=== PATIENT | female | born 2000 | race Caucasian/White ===

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

== ENCOUNTER 2022-08-17 06:14 | Emergency (ER) | payer OTHER, SELFPAY ==
--- NOTE | ~2022-08-17 | CT_ITS ---
EXAMINATION: CT lumbar spine wo con DATE: 08/17/2022 07:34 INDICATION: Low back pain. Left leg pain and weakness. TECHNIQUE: Computed tomography (CT) of the lumbar spine was performed without intravenous contrast. A utomated exposure control and iterative reconstruction technique were employed. The dose-length produ ct was 1191.88 mGy-cm. COMPARISON: CT chest, abdomen and pelvis dated 04/07/2022 FINDINGS: Alignment is normal. Partially sacralized L5 segment with 4 more cephalad nonrib-bearing lumbar segme nts L1-L4. Vertebral body heights are normal. No fracture. Chronic Schmorl's nodes along the superior endplate of T12 and at the posterior superior endplate of L5. Multilevel mild bilateral lumbar facet osteoarthritis. Mild disc height loss at L4-L5. Disc is minimally bulging at L3-L4. Chronic L4 centr al disc protrusion results in mild central canal and bilateral neural foraminal stenosis. And which n arrows the lateral recesses, left greater than right. No other central canal or neural foraminal sten osis. Paravertebral soft tissues are unremarkable. IMPRESSION: 1. Mild lower lumbar spondylosis without significant change since 04/01/2018. Reviewed, dictated and finalized at location A.
[2022-08-17 06:18] VITALS: BP 126/66; PULSE 68; RESP 16; TEMP 36.6; O2SAT 100
--- NOTE | 2022-08-17 06:53 | ED.LOWEXIN ---
HPI - Extremity Injury (Lower) General Chief Complaint: Extremity Injury, Lower <Patty Loya MD - Last Filed: 08/22/22 13:54> Stated Complaint: Right leg numbess after readjustment <Patty Loya MD - Last Filed: 08/22/22 13:54> Time Seen by Provider: 08/17/22 06:34 <Patty Loya MD - Last Filed: 08/22/22 13:54> History of Present Illness HPI Narrative: Patient is a 22-year-old female presenting with lower back pain. Patient states that she has been having lower back pain so she saw a chiropractor yesterday morning. She states that he adjusted her lumbar spine. She states that soon after, she developed shooting pain down her left leg as well as numbness and tingling. Patient states that she feels like her left leg slightly weaker than normal. States that she has been having difficulty walking due to the pain. She denies saddle anesthesia or bladder or bowel incontinence. Patient states that she has not urinated since yesterday afternoon. She denies neck or upper back pain. Denies chest or abdominal pain. No nausea or vomiting. <Patty Loya MD - Last Filed: 08/22/22 13:54> Related Data Allergies/Adverse Reactions: Allergies Allergy/AdvReac Type Severity Reaction Status Date / Time amoxicillin Allergy Unknown Hives Verified 08/17/22 06:24 <Patty Loya MD - Last Filed: 08/22/22 13:54> Review of Systems Review of Systems: All systems reviewed & are unremarkable except as noted in HPI and below <Patty Loya MD - Last Filed: 08/22/22 13:54> [facility] Past Medical History Medical History: Medical History (Updated 08/18/22 @ 00:00 by Betty Fragoso) Amenorrhea Anxiety with depression <Patty Loya MD - Last Filed: 08/22/22 13:54> Surgical History Surgical History: Surgical History History of hand surgery left hand <Patty Loya MD - Last Filed: 08/22/22 13:54> Family History Family History: Family History Mother Cancer Father Neck fracture <Patty Loya MD - Last Filed: 08/22/22 13:54> Social History Social History: Social History Smoking status: Never smoker Alcohol intake: never Substance use: current Substance use type: marijuana Additional living arrangements comments: boyfriend Additional occupation/education comments: [employer] Gender identity (if verbalized by the patient): Female <Patty Loya MD - Last Filed: 08/22/22 13:54> Exam Narrative: GENERAL: Well-appearing, well-nourished, and in no acute distress. HEAD: Normocephalic, atraumatic. EYES: PERRLA and EOMI. ENT: Nares clear, no rhinorrhea or epistaxis. Mucous membranes moist. NECK: Supple. CHEST: Clear to auscultation. No respiratory distress. HEART: Regular rate and rhythm. No murmur heard. Normal peripheral pulses. ABDOMEN: Soft, nontender, nondistended, normal active bowel sounds. EXTREMITIES: Normal range of motion. No edema. SKIN: Warm, dry, no rash. NEURO: No focal deficits. Alert and oriented x3. Strength 5 out of 5 in all extremities PSYCH: Normal mood and affect. <Patty Loya MD - Last Filed: 08/22/22 13:54> Course Course Emergency Course: Patient is a 22-year-old female presenting with lower back pain after visiting chiropractor. Vitals within normal limits. Exam unremarkable. Plan for Toradol and steroids. Will obtain CT lumbar spine. Patient signed out pending imaging, anticipate discharge with supportive care as long as imaging is negative. <Patty Loya MD - Last Filed: 08/22/22 13:54> Reevaluation(s) Reevaluation #1: Patient care was signed out to me by Dr. Loya with CT pending. Patient was treated with Toradol and dexamethasone and states that she does feel improved. CT scan showed spondylosis
--- NOTE | 2022-08-17 07:10 | PC.NURSE ---
RN report given to JAMA Flor.
[2022-08-17] MEDS: KETOROLAC 30 MG/ML VIAL (*BKC) IM (07:20)
[2022-08-17] MEDS: DEXAMETHASONE 2 MG TABLET 10 MG PO (07:42)
[2022-08-17 09:26] VITALS: PULSE 72; RESP 18; O2SAT 99
== END 2022-08-17 09:27 | disposition home or self-care (01) ==
PROVIDERS: Emergency Provider Emergency Medicine; PCP Nurse Practitioner Family
DX: M54.50 Low back pain, unspecified (principal); R20.2 Paresthesia of skin; F41.9 Anxiety disorder, unspecified; F12.90 Cannabis use, unspecified, uncomplicated
CPT/HCPCS: 72131; 81025; 96372; 99284; J1885; J8540

== ENCOUNTER 2022-10-29 18:03 | Emergency (ER) | payer OTHER, SELFPAY ==
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
[2022-10-29 19:20] VITALS: BP 140/73; PULSE 72; RESP 18; TEMP 36.6; O2SAT 98
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
[2022-10-29 20:02] LABS: Basophils Percent Auto 0.4 % (0.2-1.2); Eosinophils Absolute Auto 0.1 K/mm3 (0-0.3); Eosinophils Percent Auto 0.8 % (0-4.4); Hematocrit 35.1 % (37.0-47.0); Hemoglobin 11.3 g/dL (12.0-15.0); Immature Granulocyte Absolute 0.03 K/mm3 (0.00-0.031); Immature Granulocyte Percent A 0.3 % (0-0.5); Lymphocytes Absolute Auto 2.65 K/mm3 (0.9-3.2); Lymphocytes Percent Auto 26.1 % (18.3-44.2); Mean Corpuscular HGB Conc 32.2 g/dl (32-36); Mean Corpuscular Volume 83.8 fl (80-100); Mean Platelet Volume 9.3 fl (7.4-10.4); Monocytes Absolute Auto 0.7 K/mm3 (0.1-0.6); Monocytes Percent Auto 6.8 % (2.6-8.5); Neutrophils Absolute Auto 6.7 K/mm3 (1.3-6.7); Neutrophils Percent Auto 65.6 % (45.5-73.1); Platelet Count Result 326 k/mm3 (150-375); Red Blood Count 4.19 M/mm3 (4.2-5.4); Red Cell Distribution Width 13.8 % (11.5-14.5); White Blood Count 10.2 K/mm3 (4.5-10.0)
[2022-10-29 20:15] LABS: Add Urine Microscopic? YES; Appearance Urine Cloudy (Clear); Bilirubin Urine Negative (Negative); Blood Urine Negative (Negative); Color Urine Light Yellow (Yellow); Glucose Urine UA Negative (Negative); Ketones Urine Negative (Negative); Leukocyte Esterase Ur Trace LEU/UL (Negative); Nitrate Urine Positive (Negative); Protein Urine Negative (Negative); Specific Grav Ur 1.025 (1.001-1.035); Urobilinogen Urine 0.2 mg/dL (<2.0)
[2022-10-29 20:15] LABS: Alanine Aminotransferase 28 U/L (6-35); Albumin Level 4.5 g/dL (3.5-5.1); Alkaline Phosphatase 72 U/L (38-126); Anion Gap 8 mmol/L (8-16); Aspartate Amino Transferase 32 U/L (14-36); Bilirubin,Total 0.3 mg/dL (0.2-1.3); Blood Urea Nitrogen 14 mg/dL (7-17); Carbon Dioxide 26 mmol/L (22-30); Chloride 103 mmol/L (98-107); Estimated CRCL calculation 99 ml/min; Estimated Glomerular Filt Rate > 60; Glucose 97 mg/dL (65-110); Lipase 43 U/L (23-300); Potassium 3.7 mmol/L (3.4-5.0); Sodium 137 mmol/L (137-145)
[2022-10-29 20:19] LABS: Bacteria Urine Trace /hpf; Mucus Urine Heavy /lpf; Squamous Epithelial Cell Urine Many /hpf (Few); WBC Urine 16-20 /hpf
== END 2022-10-29 21:52 | disposition home or self-care (01) ==
PROVIDERS: Emergency Provider Nurse Practitioner Family; PCP Nurse Practitioner Family
DX: S39.012A Strain of muscle, fascia and tendon of lower back, initial encounter (principal); S19.9XXA Unspecified injury of neck, initial encounter; R10.12 Left upper quadrant pain; V43.52XA Car driver injured in collision with other type car in traffic accident, initial encounter
CPT/HCPCS: 36415; 71260; 72125; 72129; 72132; 74177; 80053; 81001; 81025; 83690; 85025; 87077; 87086; 87186; 99284; Q9967

== ENCOUNTER 2022-11-05 11:28 | Outpatient (CLI) | payer OTHER, SELFPAY ==
[2022-11-05 11:48] LABS: Add Urine Microscopic? YES; Appearance Urine Clear (Clear); Bilirubin Urine Negative (Negative); Blood Urine 1+ (Negative); Color Urine Light Yellow (Yellow); Glucose Urine UA Negative (Negative); Ketones Urine Negative (Negative); Leukocyte Esterase Ur Negative (Negative); Nitrate Urine Negative (Negative); Protein Urine Negative (Negative); Specific Grav Ur >= 1.030 (1.010-1.020); Urobilinogen Urine 0.2 mg/dL (0.2-1.0)
[2022-11-05 11:52] LABS: Pregnancy On Board Control Positive; Urine Pregnancy Test Negative
[2022-11-05 12:00] LABS: Bacteria Urine 1+ /hpf; Mucus Urine Few /lpf; Squamous Epithelial Cell Urine Moderate /hpf (Few)
[2022-11-05 12:47] LABS: HIV 1 P24 AG Negative (Negative); HIV 1/2 AB Negative (Negative)
[2022-11-07 15:08] LABS: RPR Screen Non-Reactive (Non-Reactive)
[2022-11-09 09:07] LABS: HSV 1 IgM Screen Negative (Negative); HSV 2 IgM Screen Negative (Negative)
== END 2022-11-05 11:29 | disposition home or self-care (01) ==
PROVIDERS: PCP Nurse Practitioner Family; Visit Provider Nurse Practitioner Family
DX: N39.0 Urinary tract infection, site not specified (principal); N89.8 Other specified noninflammatory disorders of vagina
CPT/HCPCS: 36415; 81001; 81025; 86592; 86695; 86696; 86703; 87491; 87591

== ENCOUNTER 2023-03-30 12:09 | Emergency (ER) | payer OTHER, SELFPAY ==
[2023-03-30 12:12] VITALS: BP 151/91; PULSE 78; RESP 16; TEMP 36.6; O2SAT 100
[2023-03-30] MEDS: HYDROcodone/acetaminophen (*CRX) 5-325 MG TABLET 1 TAB PO (13:18)
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
--- NOTE | 2023-03-30 13:44 | PC.NURSE ---
patient left before discharge instructions and rx were given. provider aware
== END 2023-03-30 13:46 | disposition home or self-care (01) ==
PROVIDERS: Emergency Provider Emergency Medicine; PCP Nurse Practitioner Family
DX: M54.42 Lumbago with sciatica, left side (principal)
CPT/HCPCS: 99283; A9270

== ENCOUNTER 2023-04-01 09:57 | Outpatient (NON) | payer OTHER, SELFPAY | END 2023-04-01 09:58 | disposition home or self-care (01) | LOC: CHSLAB 09:58 | PROVIDERS: Visit Provider Nurse Practitioner Family | DX: M54.50 Low back pain, unspecified (principal); R82.90 Unspecified abnormal findings in urine | CPT/HCPCS: 87086 ==

== ENCOUNTER 2023-08-27 14:11 | Outpatient (CLI) | payer OTHER, SELFPAY ==
[2023-08-27 14:51] LABS: SPREG INTERNAL CONTROL Positive; Serum Qual hCG Positive
== END 2023-08-27 14:12 | disposition home or self-care (01) ==
LOC: CHSLAB 14:13
PROVIDERS: PCP Family Medicine; Visit Provider Family Medicine
DX: Z32.00 Encounter for pregnancy test, result unknown (principal)
CPT/HCPCS: 36415; 84703

== ENCOUNTER 2023-10-01 02:45 | Day surgery (SDC) | payer OTHER, SELFPAY ==
[2023-09-29 10:41] VITALS: BMI 35.2
--- NOTE | 2023-09-29 10:46 | PC.NURSE ---
Report to the Outpatient Waiting Room, entrance under the green pavilion located off [facility], at time 1100 on date 10/01/23. Planned Procedure Time: 1300. Time changes happen often and if your time is changed the preop area will call you the afternoon before. - You and your visitor will be asked to self-screen and do not enter if you have any COVID symptoms. - A mask is optional within the hospital at this time. Patients may have clear liquids (water, carbonated beverages, clear teas, apple juice) until 3 hours prior to surgery with a maximum of 20 ounces. - No food from midnight until time of surgery Take the following medications with a SIP of water the morning of surgery: TYLENOL/FLEXERIL IF NEEDED DO NOT STOP ANY OF YOUR OTHER PRESCRIPTION MEDICATIONS PRIOR TO SURGERY ?EXCEPT THE FOLLOWING Medications to discontinue per physician: N/A Date to take last dose: N/A Please no make-up, nail chinese, hairspray, perfume, deodorant, or body powder the day of surgery. No jewelry (including any body piercings) or valuables the day of surgery, leave them at home. Please take a shower or bath the night before, or the morning of, surgery with an antibacterial soap. Wear comfortable, loose fitting clothing. - Jewelry must be removed prior to entering the operating room. Rings and piercings that are not removed may be cut off. - The hospital will not accept responsibility for valuables. - Please leave all valuables, including medications, at home the day of surgery. If you are going home after surgery, a licensed entry level truck driver must drive you home. - NO public transportation without another adult if you receive anesthesia. - We recommend that an adult stay with you for 24 hours following discharge. - We also recommend that you do not drive, make important decision, drink alcoholic beverages, or take any drugs that were not prescribed by your health care provider for at least 24 hours after your discharge time. Follow any additional instructions given to you from your surgeon. If you or anyone in your household have experienced Covid symptoms in the past week, please notify your surgeon or the nurse liaison at the phone number below for possible testing. Telephone instructions given to PT - REDD MANZANO and asked if any additional questions and then verbalized understanding. Patient advised to call surgeon office or pre surgery nurse liaison [phone] if any additional questions.
--- NOTE | 2023-09-29 11:20 | P.HP_ITS ---
H&P: HPI History of Present Illness Date/Time: 09/29/23 11:20 Chief Complaint: First trimester missed A/B Narrative: Is a 23-year-old 1 para 0 in her 1st trimester with missed A/B. She has had 2 ultrasounds 11 days apart which have shown no growth and appears to be a blighted ovum. She opts for suction dilatation curettage. Risks and benefits reviewed in great detail [facility] Past Medical History Medical History (Updated 09/29/23 @ 11:23 by Adam Weeks MD) Amenorrhea Anxiety with depression Surgical History Surgical History History of hand surgery left hand Family History Family History Mother Cancer Father Neck fracture Social History Social History Smoking status: Never smoker Alcohol intake: never Substance use: current Substance use type: marijuana Living arrangements: alone Additional living arrangements comments: boyfriend Occupation/Education: occupation Additional occupation/education comments: [employer] Gender identity (if verbalized by the patient): Female Spiritual care concerns: No Meds Home Medications and Allergies Home Medications Medication Instructions Recorded Confirmed Type cyclobenzaprine 10 mg tablet 10 mg PO BID PRN muscle spasm #14 03/31/23 09/29/23 Rx tabs acetaminophen 325 mg tablet 650 mg PO PRN PRN Pain 09/29/23 09/29/23 History (Tylenol) Allergies Allergy/AdvReac Type Severity Reaction Status Date / Time amoxicillin Allergy Unknown Hives Verified 09/29/23 10:40 Exam Const: General: cooperative, healthy appearing and comfortable Nutritional Appearance: average body habitus Orientation/consciousness: oriented to person, oriented to place and oriented to time HENMT: Head: normal to inspection Resp: Effort & Inspection: normal respiratory effort Cardio: Rate: regular rate Rhythm: regular rhythm Heart sounds: S1 normal heart sound present and S2 normal heart sound present GI: Inspection: normal to inspection : Speculum Exam - Vagina: normal appearance of the vagina Speculum Exam - Cervix: normal appearance of the cervix Bimanual exam- vagina & uterus: enlarged Bimanual Exam- Adnexa, other: normal adnexae Assessment and Plan Assessment and plan (1) Missed : Code(s): O02.1 - Missed Status: Acute Plan Suction dilatation and curettage
--- NOTE | 2023-10-01 06:54 | WPDHPUPDATE1 ---
History and Physical Update Update Date/Time: 10/01/23 06:54 History and Physical has been reviewed, including an updated exam of the patient. There are NO changes in the patient's condition. Risks, benefits, and alternatives have been discussed and questions answered. Patient agrees to proceed with procedure.
[2023-10-01 10:59] VITALS: BP 122/67; PULSE 74; RESP 16; TEMP 36.2; O2SAT 100
[2023-10-01] MEDS: LACTATED RINGERS 1,000 ML 30 ML IV CONT ×2 (11:30→13:19)
[2023-10-01 11:36] LABS: Hematocrit 33.7 % (37.0-47.0); Hemoglobin 10.2 g/dL (12.0-15.0)
[2023-10-01] MEDS: ACETAMINOPHEN 500 MG TABLET 1000 MG PO (12:12)
--- NOTE | 2023-10-01 12:44 | WPDANESEPPF ---
Anes - Initial Pre Proc Eval Procedure: Operation Date: 10/01/23 13:00 Proposed Procedures p Suction Dilation and Curettage - Adam Weeks MD Date/Time: 10/01/23 12:44 Surgeon: Adam Weeks MD Pre Op Diagnosis: missed AB Patient Data Age: 23 Gender: F Height: 1.74 m Weight: 109.1 kg Last Vital Signs Temp 36.2 C L 10/01/23 10:59 Pulse 74 10/01/23 10:59 Resp 16 10/01/23 10:59 BP 122/67 10/01/23 10:59 Pulse Ox 100 10/01/23 10:59 O2 Del Method Room Air 10/01/23 10:59 Allergies Allergy/AdvReac Type Severity Reaction Status Date / Time amoxicillin Allergy Unknown Hives Verified 10/01/23 11:33 Home Medications Medication Instructions Recorded Confirmed Type cyclobenzaprine 10 mg tablet 10 mg PO BID PRN muscle spasm #14 03/31/23 10/01/23 Rx tabs acetaminophen 325 mg tablet 650 mg PO PRN PRN Pain 09/29/23 10/01/23 History (Tylenol) hydrocodone 5 mg-acetaminophen 325 1 tablet PO Q4H PRN pain #14 tabs 10/01/23 Rx mg tablet Laboratory Tests 10/01/23 11:25 Hgb 10.2 L g/dL (12.0-15.0) Hct 33.7 L % (37.0-47.0) Blood Type O Negative Antibody Screen Negative Screen Not Reportable Baby's Blood Type Not Reportable Baby's EDYTA Not Reportable Doses of RhIg Required 1 Patient hx anesthesia problems: none Family hx anesthesia problems: none Results Review: All pre-operative results and documents have been reviewed as part of the pre-operative evaluation. [facility] Past Medical History Medical History Amenorrhea Anxiety with depression Surgical History Surgical History History of hand surgery left hand Family History Family History Mother Cancer Father Neck fracture Social History Social History Smoking status: Never smoker Alcohol intake: never Substance use: current Substance use type: marijuana Living arrangements: alone Additional living arrangements comments: boyfriend Occupation/Education: occupation Additional occupation/education comments: anoop Gender identity (if verbalized by the patient): Female Spiritual care concerns: No Anes - Eval Final PreProcedure Day of Procedure 10/01/23 12:44 Patient weight: morbidly obese Heart: regular rate and rhythm Lungs: clear to auscultation Airway: Mallampati scale class II Neurological: alert and oriented Last oral intake: >/= 8 hours ASA classification: III Emergent: no Anesthetic plan: proceed Anesthesia type and monitoring: general GIVS and standard monitoring Results Review: All pre-operative results and documents have been reviewed as part of the pre-operative evaluation. Informed Consent: The patient's anesthetic plan and its attendant risks and benefits were discussed with the patient/family/POA. Questions were solicited and answers provided to the satisfaction of the patient/family/POA.
[2023-10-01] MEDS: LIDOCAINE HCL 1% LOCAL INJ 20 ML VIAL 10 ML INFILTRATE (13:14)
--- NOTE | 2023-10-01 13:17 | W.PM.PROC2 ---
Procedure Note - Detailed Date of Procedure 10/01/23 Pre-op Diagnosis missed AB Post-op Diagnosis Same Procedure Performed Suction dilatation curettage Surgeon Adam Weeks MD Anesthesia MAC and Local Indications is a 23-year-old female with an missed A/B Findings uterus sounded to 10cm. Tissue consistent with products of conception Description of Procedure patient is prepped draped normal sterile fashion placed in dorsal lithotomy position. Under excellent IV sedation weighted speculum placed posterior fornix vagina. Anterior lip of cervix grasped with single-tooth tenaculum. 2.5cc 1% xylocaine anesthesia placed at 2, 4, 8, 10:00 a.m. in the cervix. Uterus sounded to 10cm. Serial dilatation with fragmented dilators performed followed by passage of the 10. Suction curette. Moderate to large amount of tissue was removed. When a good grating sound was heard the instruments withdrawn the patient was sent back to recovery. All sponge, needle, instrument counts were correct. There were no immediate complications. RhoGAM was ordered secondary to her Rh negative blood type Estimated Blood Loss 25 Drains No Packing No Pathology Yes Complications No immediate complications Condition Stable Disposition PACU
[2023-10-01 13:19] VITALS: BP 92/72; PULSE 88; RESP 14
[2023-10-01] MEDS: RHO(D) IMMUNE GLOBULIN 300 MCG/2 ML SYRINGE IM (13:42)
[2023-10-01 13:45] VITALS: BP 148/70; PULSE 89; RESP 20
[2023-10-01 14:10] VITALS: BP 142/60; PULSE 71; RESP 20
== END 2023-10-01 14:17 | disposition home or self-care (01) ==
PROVIDERS: PCP Nurse Practitioner Family; Visit Provider Obstetrics & Gynecology
PROC: (CPT 59820; principal; 2023-10-01 13:00)
DX: O02.1 Missed abortion (principal)
CPT/HCPCS: 59820; 36415; 85014; 85018; 85461; 86850; 86900; 86901; 88305; 90384; A9270; J1100; J2250; J2405; J2704; J2790; J3010; J7120

== ENCOUNTER 2024-01-05 07:52 | Outpatient (RCR) | payer OTHER, SELFPAY ==
--- NOTE | 2024-01-05 09:11 | OPREHPOC ---
Outpatient Therapy Plan of Care This is a Multidisciplinary Plan of Care that may contain components documented by all disciplines (PT, OT, and ST.) PT Problem 1 PT Problem #1 Knowledge Deficit PT Goal 1 Goal patient to demonstrate independence with HEP Target Visit 6 PT Problem 2 PT Problem #2 Pain PT Goal 1 Goal 1. patient to report highest pain at 2/10 2. patient to report ability to sleep with no disturbance due to R knee pain Target Visit 12 PT Problem 3 PT Problem #3 Impaired Range of Motion PT Goal 1 Goal patient to demonstrate 0-90 deg of R knee flexion to improve ability to drive Target Visit 6 PT Goal 2 Goal patient to demonstrate 0-120 deg of R knee flexion to return to stair navigation at PLOF Target Visit 12 PT Problem 4 PT Problem #4 Impaired Strength PT Goal 1 Goal Patient to demonstrate 5/5 strength of the R LE to return to ambulation without use of AD Target Visit 12 PT Problem 5 PT Problem #5 Impaired Functional Mobil PT Goal 1 Goal 1. Patient to score less than 30% disability on the LEFS 2. Patient to report no pain with getting into bed 3. Patient to ambulate with full TKE and no use of AD Target Visit 12
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
--- NOTE | 2024-01-12 08:12 | PCPTNOTE ---
pt called and cancelled due to conflict of schedule
--- NOTE | 2024-01-19 07:17 | PCPTNOTE ---
patient called and cancelled therapy appointment today due to feeling sick.
--- NOTE | 2024-01-26 09:31 | PCPTNOTE ---
patient no call no show
--- NOTE | 2024-02-02 11:57 | PCPTNOTE ---
02/02/24: Patient did not show for her 7:15 am appointment, left a message for patient at 7:30 am. -Layne Gaston, PT
--- NOTE | 2024-02-09 08:21 | PCPTNOTE ---
no show. attempted contact. no answer/
--- NOTE | 2024-02-11 07:57 | PCPTNOTE ---
No call no show. Patient did not answer phone call, voicemail left for patient to schedule for next week.
--- NOTE | 2024-02-18 07:30 | PCPTNOTE ---
No call no show. Voicemail left for patient.
--- NOTE | 2024-03-03 07:47 | PCPTNOTE ---
No call no show this date. Voicemail left for pt to schedule next week.
--- NOTE | 2024-03-10 10:57 | OPREHPOC ---
Outpatient Therapy Plan of Care This is a Multidisciplinary Plan of Care that may contain components documented by all disciplines (PT, OT, and ST.) PT Problem 1 PT Problem #1 Knowledge Deficit PT Goal 1 Goal patient to demonstrate independence with HEP Target Visit 6 Progress Not Met Comment continue PT Problem 2 PT Problem #2 Pain PT Goal 1 Goal 1. patient to report highest pain at 2/10 2. patient to report ability to sleep with no disturbance due to R knee pain Target Visit 12 Progress Not Met Comment continue PT Problem 3 PT Problem #3 Impaired Range of Motion PT Goal 1 Goal patient to demonstrate 0-90 deg of R knee flexion to improve ability to drive Target Visit 6 Progress Met PT Goal 2 Goal patient to demonstrate 0-120 deg of R knee flexion to return to stair navigation at PLOF Target Visit 12 Progress Met PT Problem 4 PT Problem #4 Impaired Strength PT Goal 1 Goal Patient to demonstrate 5/5 strength of the R LE to return to ambulation without use of AD Target Visit 12 Progress Not Met Comment continue PT Problem 5 PT Problem #5 Impaired Functional Mobil PT Goal 1 Goal 1. Patient to score less than 30% disability on the LEFS 2. Patient to report no pain with getting into bed 3. Patient to ambulate with full TKE and no use of AD Target Visit 12 Progress Not Met Comment continue
--- NOTE | 2024-03-10 10:57 | PTOPPROG ---
Assessment and note entered by Layne Gaston, PT Evaluation Information Assessment Status Progress Diagnosis R knee pain Onset 01/02/24 Subjective Information Patient reports she saw Dr. Armen King, an explosive ordnance specialist, last week and he thought she needed to have surgery to repair her ACL and her meniscus. She is waiting on insurance to approve the surgery. She has been walking without a crutch for a week now and notes she has pain rated 6-7/10 while walking and putting weight on the right leg. She notes no pain at rest. She does still have pain when she squats or bends down. She is not working at [employer] currently due to her right knee injury. Assessment PT Clinical Summary Ezio Hawk has completed 8 skilled PT visits. She injured her knee on 01/02/24. She saw an explosive ordnance specialist last week and he recommended she have knee surgery to repair her ACL and meniscus. She is waiting on approval before scheduling surgery. She is demonstrating tenderness along her medial right knee joint line, decreased right knee flexion AROM, decreased right knee and hip strength, impaired gait, decreased balance, and positive special tests for ACL instability. She will continue to benefit from skilled PT to further address these deficits prior to her knee surgery. Plan of Care Interventions Electrical Stimulation,Gait Training,Hot Pack/Cold Pack,Intermittent Compression,Neuro Re-education, Patient/Caregiver Educati,Therapeutic Activities, Therapeutic Exercise PT Services Indicated Yes Treatment Frequency and Continue current POC. Duration These treatments will address the objective and functional deficits as defined above. The patient will be advanced safely and appropriately in order for the patient to progress towards his/her prior level of function. Additional exercises will be introduced and as well as a comprehensive home exercise program upon discharge, if needed, ?to ensure carryover of functional gains achieved in the clinic. This treatment plan has been reviewed and agreement upon by the patient.
--- NOTE | 2024-03-17 07:16 | PCPTNOTE ---
No call, no show. Voicemail left for patient this morning.
--- NOTE | 2024-07-19 10:54 | PCPTNOTE ---
See progress note dated 03/10/24 when pt was last seen. Pt was waiting on insurance to schedule surgery and did not show up for last 4 PT visits. She is discharged. -Layne Gaston, PT
== END 2024-03-10 20:00 | disposition home or self-care (01) ==
LOC: CHSPT 07:52
PROVIDERS: PCP Family Medicine; Visit Provider Nurse Practitioner Family
DX: M25.561 Pain in right knee (principal)
CPT/HCPCS: 97014; 97110; 97116; 97161; 97750; G0283

== ENCOUNTER 2024-01-23 07:36 | Outpatient (CLI) | payer OTHER, SELFPAY ==
--- NOTE | ~2024-01-23 | MR_ITS ---
EXAMINATION: MR knee RT wo con DATE: 01/23/2024 08:36 INDICATION: M25.561 - Pain in right knee TECHNIQUE: Magnetic resonance imaging (MRI) of the right knee was performed without intravenous contr ast. Sequences included axial PD-weighted FS FSE, coronal PD-weighted FSE and PD-weighted FS FSE, sag ittal PD-weighted FSE, and sagittal T2-weighted FS FSE. COMPARISON: 01/22/2019 FINDINGS: Medial compartment: Complex tear of the posterior horn and body of the medial meniscus. Vertically oriented tear of the p osterior horn extending to the articular surface may represent repaired or partially healed chronic t ear. New obliquely oriented undersurface irregularity of the posterior horn as well as horizontally orient ed and apical tears of the body. Mild extrusion into the inferior medial joint recess. Mild diffuse c artilage thinning and osteophytosis without focal defect. Lateral compartment: Small apical tear of the body of the lateral meniscus. Small parrot beak type tear of the apex of the posterior horn. Cartilage intact. Patellofemoral compartment: Partial-thickness cartilage signal abnormality on the medial facet and median ridge. Retinacula intac t. Ligaments and tendons: Status post ACL repair, there is thinning and abnormal signal in the midportion of the graft. Mild ch ronic thickening of the MCL. The remaining ligaments and flexor and extensor tendons are intact. Fluid: Trace joint fluid. Osseous/other: Abnormal T2 hyperintensity in the lateral tibial plateau, without low signal linear T1 abnormality to suggest trabecular fracture. IMPRESSION: Complex tear of the posterior horn and body, medial meniscus, likely involving partially healed or re paired tear of the posterior horn, with additional posterior horn and body tears that are new since t he prior study. Thinning and abnormal signal in the midportion of the ACL graft which may represent partial tear. Small parrot beak type tear of the apex of the posterior horn and small apical tear of the body of th e lateral meniscus. Lateral tibial plateau bone marrow contusion. Reviewed, dictated and finalized at location K. IMPRESSION: Complex tear of the posterior horn and body, medial meniscus, likely involving partially healed or repaired tear of the posterior horn, with additional glove pairer ior horn and body tears that are new since the prior study. Thinning and abnormal signal in the midportion of the ACL graft which may repre sent partial tear. Small parrot beak type tear of the apex of the posterior horn and small apical tear of the body of the lateral meniscus. Lateral tibial plateau bone marrow contusion.
== END 2024-01-23 07:37 | disposition home or self-care (01) ==
LOC: CHSIMG 07:38
PROVIDERS: PCP Nurse Practitioner Family; Visit Provider Nurse Practitioner Family
DX: M25.561 Pain in right knee (principal); S83.231A Complex tear of medial meniscus, current injury, right knee, initial encounter; S83.281A Other tear of lateral meniscus, current injury, right knee, initial encounter; S80.11XA Contusion of right lower leg, initial encounter
CPT/HCPCS: 73721

== ENCOUNTER 2025-04-11 11:04 | Outpatient (CLI) | payer OTHER, SELFPAY ==
[2025-04-11 11:20] LABS: Basophils Absolute Auto 0.03 K/mm3 (0.00-0.10); Basophils Percent Auto 0.4 % (0.0-1.0); Eosinophils Absolute Auto 0.11 K/mm3 (0.02-0.50); Eosinophils Percent Auto 1.4 % (1.0-6.0); Hemoglobin 10.9 g/dL (12.0-15.0); Immature Granulocyte Absolute 0.03 K/mm3 (0.00-0.00); Immature Granulocyte Percent A 0.4 % (0.0-0.0); Lymphocytes Absolute Auto 2.38 K/mm3 (1.10-4.50); Lymphocytes Percent Auto 30.6 % (18.0-42.0); Mean Corpuscular HGB Conc 30.3 g/dL (32-36); Mean Corpuscular Hemoglobin 25.2 pg (27.0-31.0); Mean Corpuscular Volume 83.1 fL (78.0-102.0); Mean Platelet Volume 8.7 fl (9.2-11.8); Monocytes Absolute Auto 0.54 K/mm3 (0.10-0.90); Monocytes Percent Auto 6.9 % (2.0-11.0); Neutrophils Absolute Auto 4.69 K/mm3 (1.70-7.20); Neutrophils Percent Auto 60.3 % (50.0-70.0); Platelet Count Result 410 K/mm3 (150-420); Red Blood Count 4.33 M/mm3 (4.20-5.40); Red Cell Distribution Width 15.1 % (11.6-14.4); White Blood Count 7.8 K/mm3 (4.8-10.8)
[2025-04-11 12:02] LABS: Beta HCG Quantitative < 2.39 mIU/ML
--- OUTSIDE RECORDS SUMMARY | 2025-04-11 12:27 | XMS_ITS | Clinical Summary ---
Author Organization [facility] Address [address] [place] [address] Care Team Providers Care Varnish Finisher Name Role Phone Hillary Sanders NP Primary Care Provide r Elisa Jacobs RADIO CONTROL CRANE OPERATOR Unavailable [phone] Allergies Active Allergy Reactions Criticality Noted Date Comments Amoxicillin Rash Medium 04/01/2018 Medications famotidine (PEPCID) 40 mg tablet Take 1 tablet (40 mg total) by mouth nightly as needed for heartburn 20 tablet 3 Active Additional Information Patient not taking.Reported on 05/22/2023 acetaminophen (TYLENOL) 500 mg tablet Take 1-2 tablets (500-1,000 mg total) by mouth every 6 (six) hours as needed for pain (1 tablet for mild to moderate pain. 2 tablets for severe pain) 30 tablet 3 Active ibuprofen (ADVIL,MOTRIN) 600 mg tablet Take 1 tablet (600 mg total) by mouth every 6 (six) hours as needed for pain 30 tablet 3 Active Additional Information Patient not taking.Reported on 08/07/2023 gabapentin (NEURONTIN) 300 mg capsule Take 1 capsule (300 mg total) by mouth 3 (three) times a day Active HYDROcodone-georgie taminophen 2.5-325 mg tablet Take 3 tablets by mouth as needed Active cyclobenzaprine (FLEXERIL) 10 mg tablet Take 1 tablet (10 mg total) by mouth 3 (three) times a day as needed 3 Active meloxicam (MOBIC) 15 mg tablet Take 1 tablet (15 mg total) by mouth daily 30 tablet 11 3 Active pregabalin (LYRICA) 150 mg capsule 4 Active Active Problems Problem Noted Date Diagnosed Date Piriformis syndrome of left side 03/22/2023 Chronic left-sided low back pain without sciatic a 03/22/2023 Closed fracture of lateral condyle of humerus Surgical History Surgery Date Site/Laterality Comments KNEE ARTHROSCOPY W/ ACL RECONSTRUCTION Ri ght FINGER SURGERY Left fifth FL UPPER GI AIR CONTRAST W KUB 06/14/2024 Left Social History Tobacco Use Types Packs/Day Years Used Date Smoking Tobacco: Some Days Cigarillos Smokeless Tobacco: Never Tobacco Cessation:Ready to Q uit: Not Asked; Counseling Given: Not Answered Alcohol Use Standard Drinks/Week Comments Not Currently 0 (1 standard drink = 0.6 oz pur e alcohol) AUDIT-C Answer Date Recorded Q1: How often do you have a drink containing alcohol? Never 07/08/2024 Q2: How many drinks containi ng alcohol do you have on a typical day when you are drinking? Patient does not drink Q3: How often do you have si x or more drinks on one occasion? Never 07/08/2024 Hunger Vital Sign Answer Date Recorded Within the past 12 months, y ou worried that your food would run out before you got the money to buy more. Never true 07/08/20 24 Within the past 12 months, t he food you bought just didn't last and you didn't have money to get more. 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 [employer] Gender Identity Not on file Sexual Orientation Not on file Obstetrics History Last Filed Vital Signs Vital Sign Reading Time Taken Comments Blood Pressure 119/56 06/14/2024 2:44 PM CDT Pulse 73 06/14/2024 2:44 PM CDT Temperature 37.2 C (98.9 F) 08/07/2023 11:15 AM CDT Respiratory Rate 20 06/14/2024 2:44 PM CDT Oxygen Saturation 97% 05/07/2023 6:00 PM CDT Inhaled Oxygen Concentration - - Weight 111.1 kg (245 lb) 09/02/2024 2:04 PM CDT Height 172.7 cm (5' 8) 09/02/2024 2:04 PM CDT Body Mass Index 37.25 09/02/2024 2:04 PM CDT Plan of Treatment Health Maintenance Due Date Last Done Comments Cervical Cancer Screening 2002 Depression Screening 2002 Hepatitis C Screening 2002 Pneumococcal vaccine <65 (1 of 1 - PPSV23) 2008 07/05/2003, 2002, 2002 HPV Vaccines (1 - 3-dose series) 2017 Meningococcal B Vaccine (1 o f 2 - Standard) 2018 Regular Well Visit/Exam 18-64 2020 DTaP/Tdap/Td Vaccine (7 - Td or Tdap) 03/09/2023 03/09/2013, 05/25/2007, 07/05/2003, Additional history exists Influenza Vaccine (Season Ended) 2025 08/27/20 12 Hepatitis B Screening Completed 07/05/2003 , 2002, 2002, Additional history exists Varicella Vaccines Completed 11/07/2008, 07/05/[id number] [place] [address] [facility] Care Teams Varnish Finisher Relationship Specialty Start Date End Date Hillary Sanders NP [address] [place] [address] PCP - General Nurse Practitioner 03/22/23 Elisa Jacobs NP [address] [place] [address] Nurse Practitioner Nurse Practitioner 05/11/23
--- OUTSIDE RECORDS SUMMARY | 2025-04-11 12:27 | XMS_ITS | Referral Summary ---
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
--- OUTSIDE RECORDS SUMMARY | 2025-04-11 12:27 | XMS_ITS | Encounter Summary ---
Author Organization [facility] Address [address] [place] [address] Care Team Providers Care Snailer Name Role Phone Hillary Sanders SHANK PINNER Primary Care Provide r Elisa Jacobs SHANK PINNER Unavailable [phone] Encounter Details Date Type Department Care Team (Late st Contact Info) Description 05/26/2023 Documentation [facility] [address] [place] [address] Health 4th Floor [address] [place] [address] Mariluz Shipley Social History Tobacco Use Types Packs/Day Years Used Date Smoking Tobacco: Never Alcohol Use Standard Drinks/Week Comments Not Currently 0 (1 standard drink = 0.6 oz pur e alcohol) Hunger Vital Sign Answer Date Recorded Within the past 12 months, y ou worried that your food would run out before you got the money to buy more. Never true 05/22/20 23 Within the past 12 months, t he food you bought just didn't last and you didn't have money to get more. Never true 05/22/2023 Personal Safety Answer Date Recorded Have you ever been in or are you currently in a harmful physical or emotional relationship or is someone making you feel afraid or unsafe? 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
[2025-04-11 12:44] LABS: Iron 36 ug/dL (37-170)
[2025-04-11 12:53] LABS: Percent Iron Saturation 10 % (20-50)
== END 2025-04-11 11:05 | disposition home or self-care (01) ==
LOC: CHSLAB 11:05
PROVIDERS: PCP Nurse Practitioner Family; Visit Provider Nurse Practitioner Family
DX: N92.0 Excessive and frequent menstruation with regular cycle (principal)
CPT/HCPCS: 36415; 83540; 83550; 84702; 85025